=== PATIENT | female | born 1985 | race Caucasian/White ===

== ENCOUNTER 2020-08-23 09:43 | Emergency (ER) | payer OTHER, SELFPAY ==
--- NOTE | 2020-08-23 10:04 | ED_ITS ---
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) Associated symptoms: difficulty walking Treatments prior to arrival: heat therapy and NSAIDS Work related injury: Yes Related Data Previous Rx's Medication Instructions Recorded diazepam [Valium] 5 mg PO TID PRN #10 tab 08/23/20 hydrocodone-acetaminophen 1 tab PO Q6H PRN #12 tab 08/23/20 ibuprofen 600 mg PO Q6H PRN #30 tab 08/23/20 lidocaine 1 patch TOPICAL DAILY PRN #10 ea 08/23/20 Allergies Allergy/AdvReac Type Severity Reaction Status Date / Time prednisone Allergy Intermediate Itching Verified 08/23/20 10:03 Review of Systems Review of Systems: Constitutional : No Weight loss, No Fever, No Chills, ENT/Mouth : No Hearing loss, No Ear Pain, No Nasal Congestion, No Sinus Pain, No Hoarseness, No sore throat, No Rhinorrhea, No Swallowing Difficulty Cardiovascular : No Chest Pain, No SOB Respiratory : No Cough, No Dyspnea Gastrointestinal : No Nausea, No Vomiting, No Diarrhea, No abdominal Pain, No Hematochezia, No Melena Genitourinary : No Dysuria, No Urinary Frequency, No Hematuria, No Urinary Incontinence, Musculoskeletal : positive back pain Skin : No Skin Lesions, No rash Neuro : No Weakness, No Numbness, No Paresthesias, no loss of bowel or bladder incontinence, no saddle anesthesia COUNT INCLUDES THE [facility] Past Medical History Medical History (Updated 08/23/20 @ 10:07 by Susanne Palomino DO) Back pain Surgical History (Updated 08/23/20 @ 10:05 by Susanne Palomino DO) Previous back surgery Social History Social History (Updated 08/23/20 @ 10:05 by Susanne Palomino DO) Smoking Status: Never smoker Use of substances other than those prescribed or required for medical reasons: No Physical Exam Vital Signs: Appearance: Alert. Oriented X3. No acute distress. Eyes: Pupils equal, round and reactive to light. ENT: Pharynx normal. Neck: Normal inspection. Neck supple. CVS: Normal heart rate and rhythm. Pulses normal. Respiratory: No respiratory distress. Breath sounds normal. Abdomen: Soft and nontender. Back: ttp and spasm on lumbar paraspinals Skin: Skin warm and dry. Normal skin color. Normal skin turgor. Extremities: No lower extremity edema. No calf ttp SILT inner thigh, L5 5/5 bilaterally Neuro: Oriented X 3. No motor deficit. No sensory deficit. 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 Discharge Plan Discharge Clinical Impression: Lumbar paraspinal muscle spasm Patient Disposition: Home, Self-Care Instructions: Acute Low Back Pain (ED) Additional Instructions: return to ED for any worsening symptoms or concerns Prescriptions: New lidocaine 4 % adhesive patch,medicated 1 patch topical DAILY PRN (Reason: pain) Qty: 10 RF: 0 hydrocodone-acetaminophen 5-325 mg tablet 1 tab PO Q6H PRN (Reason: pain) Qty: 12 RF: 0 ibuprofen 600 mg tablet 600 mg PO Q6H PRN (Reason: pain) Qty: 30 RF: 0 diazepam [Valium] 5 mg tablet 5 mg PO TID PRN (Reason: muscle spasm) Qty: 10 RF: 0 Referrals: Donald Deshpande MD [Physician] - 3 days (need clearance) Stand Alone Forms: Work/School Release
[2020-08-23 10:05] VITALS: BP 127/84; PULSE 80; RESP 16; TEMP 36.3; O2SAT 97; BMI 37.5
[2020-08-23] MEDS: Lidocaine 4 % Patch ADH..PATCH 2 PATCH TRANSDERMA (10:18)
[2020-08-23] MEDS: HYDROcodone Bit/Acetam 5/325 TABLET 1 TAB PO (10:18)
[2020-08-23] MEDS: diazePAM 5 MG TABLET PO (10:18)
== END 2020-08-23 10:20 | disposition home or self-care (01) ==
PROVIDERS: Emergency Provider Emergency Medicine; PCP Nurse Practitioner Family
DX: M62.830 Muscle spasm of back (principal); M54.5 Low back pain; Z79.899 Other long term (current) drug therapy
CPT/HCPCS: 99283

== ENCOUNTER → 2020-08-27 08:56 | Outpatient (BNVA) | payer OTHER, SELFPAY | PROVIDERS: PCP Nurse Practitioner Family; Visit Provider Internal Medicine | DX: Z13.89 Encounter for screening for other disorder (principal) | CPT/HCPCS: 99202 ==

== ENCOUNTER → 2020-09-03 09:52 | Outpatient (BNVA) | payer OTHER, SELFPAY | PROVIDERS: PCP Nurse Practitioner Family; Visit Provider Internal Medicine | DX: S39.012D Strain of muscle, fascia and tendon of lower back, subsequent encounter (principal); X58.XXXD Exposure to other specified factors, subsequent encounter; M54.41 Lumbago with sciatica, right side | CPT/HCPCS: 99213 ==

== ENCOUNTER → 2020-09-10 14:49 | Outpatient (BNVA) | payer OTHER, SELFPAY | PROVIDERS: PCP Nurse Practitioner Family; Visit Provider Internal Medicine | DX: M54.41 Lumbago with sciatica, right side (principal) | CPT/HCPCS: 99213 ==

== ENCOUNTER → 2020-09-17 10:28 | Outpatient (BNVA) | payer OTHER, SELFPAY | PROVIDERS: PCP Nurse Practitioner Family; Visit Provider Internal Medicine | DX: M54.41 Lumbago with sciatica, right side (principal) | CPT/HCPCS: 99213 ==

== ENCOUNTER → 2020-09-24 09:52 | Outpatient (BNVA) | payer OTHER, SELFPAY | PROVIDERS: PCP Nurse Practitioner Family; Visit Provider Internal Medicine | DX: M54.41 Lumbago with sciatica, right side (principal); R10.31 Right lower quadrant pain | CPT/HCPCS: 99213 ==

== ENCOUNTER 2020-09-27 10:58 | Outpatient (REF) | payer OTHER, SELFPAY ==
--- NOTE | ~2020-09-27 | MR_ITS ---
EXAMINATION: MR LUMBAR SPINE WITHOUT AND WITH CONTRAST CLINICAL INFORMATION: Lifting injury. Severe back pain. COMPARISON: None available. TECHNIQUE: MRI of the lumbar spine was obtained using routine sequences without and following the administration of 10 mL of Gadavist intravenous contrast. FINDINGS: Mild left convex curvature of the lumbar spine. Otherwise, normal anatomic alignment. Advanced degenerative disc disease at L3-L4 and L4-L5. Mild degenerative disc disease at L1-L2. Associated mixed Modic type discogenic endplate changes including mild Modic type I discogenic edema/enhancement at L3-L4 and L4-L5. Mild marrow edema/enhancement within the right posterior elements of L3 suggestive of degenerative stress reaction. No additional suspicious marrow edema. The vertebral body heights are well-maintained. The conus medullaris terminates at the level of L1-L2. The distal spinal cord is normal in appearance. 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 No additional abnormal contrast enhancement. Postsurgical changes of the lower back status post right-sided spinal surgery L3-L4. No additional significant abnormalities of the paraspinal musculature. Limited evaluation of the intra-abdominal structures without significant abnormalities. The abdominal aorta is of normal contour and caliber. AXIAL SPINAL LEVELS: L1-L2: Shallow diffuse disc bulge. There is mild bilateral facet joint arthropathy. There is no neural foraminal stenosis. There is no spinal canal stenosis. L2-L3: Normal annular contour. There is mild bilateral facet joint arthropathy. There is no neural foraminal stenosis. There is no spinal canal stenosis. L3-L4: Moderate diffuse disc bulge with posterior osseous ridging. Changes of right-sided hemilaminotomy/partial facetectomy. There is moderate bilateral facet joint arthropathy. There is mild right and no left neural foraminal stenosis. There is narrowing of the subarticular zones with no overt spinal canal stenosis centrally. L4-L5: Moderate diffuse disc bulge with posterior osseous ridging. There is moderate bilateral facet joint arthropathy. There is mild left and no right neural foraminal stenosis. There is stenosis of the left subarticular zone with no overt spinal canal stenosis centrally. L5-S1: Normal annular contour. There is mild to moderate bilateral facet joint arthropathy. There is no neural foraminal stenosis. There is no spinal canal stenosis. MR/MR lumbar spine wo/w con IMPRESSION: Mild to moderate multilevel degenerative spinal arthropathy of the lumbar spine as described in detail above. Most notably, there are narrowings of the subarticular and mild neural foraminal narrowings at L3-L4 and L4-L5. No overt spinal canal stenosis or nerve root compression. Stress reactive changes within the right posterior elements of L3.
== END 2020-09-27 10:59 | disposition home or self-care (01) ==
LOC: HO.MRI 10:58
PROVIDERS: Visit Provider Internal Medicine
DX: M54.9 Dorsalgia, unspecified (principal); R10.30 Lower abdominal pain, unspecified
CPT/HCPCS: 72158; A9585

== ENCOUNTER → 2020-10-01 10:04 | Outpatient (BNVA) | payer OTHER, SELFPAY | PROVIDERS: PCP Nurse Practitioner Family; Visit Provider Internal Medicine | DX: M48.46XD Fatigue fracture of vertebra, lumbar region, subsequent encounter for fracture with routine healing (principal); R40.0 Somnolence; T42.6X5D Adverse effect of other antiepileptic and sedative-hypnotic drugs, subsequent encounter | CPT/HCPCS: 99214 ==

== ENCOUNTER → 2020-10-11 09:59 | Outpatient (BNVA) | payer OTHER, SELFPAY | PROVIDERS: PCP Nurse Practitioner Family; Visit Provider Internal Medicine | DX: M54.5 Low back pain (principal); M48.4 Fatigue fracture of vertebra | CPT/HCPCS: 99213 ==

== ENCOUNTER → 2020-10-18 09:06 | Outpatient (BNVA) | payer OTHER, SELFPAY | PROVIDERS: PCP Nurse Practitioner Family; Visit Provider Internal Medicine | DX: M54.5 Low back pain (principal); M84.30XD Stress fracture, unspecified site, subsequent encounter for fracture with routine healing; X58.XXXD Exposure to other specified factors, subsequent encounter | CPT/HCPCS: 99214 ==

== ENCOUNTER → 2020-10-25 09:55 | Outpatient (BNVA) | payer OTHER, SELFPAY | PROVIDERS: PCP Nurse Practitioner Family; Visit Provider Internal Medicine | DX: M54.9 Dorsalgia, unspecified (principal) | CPT/HCPCS: 99213 ==

== ENCOUNTER → 2020-11-01 08:55 | Outpatient (BNVA) | payer OTHER, SELFPAY | PROVIDERS: PCP Nurse Practitioner Family; Visit Provider Internal Medicine | DX: M54.9 Dorsalgia, unspecified (principal); M51.36 Other intervertebral disc degeneration, lumbar region | CPT/HCPCS: 99213 ==